=== PATIENT | female | born 1950 | race Caucasian/White ===

== ENCOUNTER → 2021-04-04 | Outpatient (CLI) | payer MEDICARE, OTHER ==
[~2021-04-04] MED LIST: COZAAR50 MG PO; DITROPAN XL5 MG PO; ECOTRIN81 MG PO; HIPREX1 GM PO; LIPITOR TAB 2020 MG PO; LIPITOR40 MG PO; MICROZIDE12.5 MG PO; NITROSTAT0.4 MG SL; PLAQUENIL 200200 MG PO; PROTONIX40 MG PO; SYNTHROID 50 M50 MCG PO; TOPROL XL50 MG PO; VITAMIN B-121000 MC2 SL; VITAMIN C1000 MG PO
== END ==
LOC: HEART 5 11:00
DX: R07.9 Chest pain, unspecified (principal); R53.83 Other fatigue; I35.1 Nonrheumatic aortic (valve) insufficiency; I51.89 Other ill-defined heart diseases
CPT/HCPCS: 93306

== ENCOUNTER → 2021-08-17 | Outpatient (CLI) | payer MEDICARE, OTHER | LOC: US 11:00 | DX: N39.3 Stress incontinence (female) (male) (principal) | CPT/HCPCS: 74018 ==

== ENCOUNTER → 2021-09-03 | Outpatient (CLI) | payer MEDICARE, OTHER | LOC: CT 12:00 | DX: M54.50 Low back pain, unspecified (principal); R31.9 Hematuria, unspecified; K76.0 Fatty (change of) liver, not elsewhere classified; M47.812 Spondylosis without myelopathy or radiculopathy, cervical region; M47.814 Spondylosis without myelopathy or radiculopathy, thoracic region; M47.816 Spondylosis without myelopathy or radiculopathy, lumbar region; Z79.899 Other long term (current) drug therapy | CPT/HCPCS: 36415; 72082; 82565; 84520; Q9967 ==

== ENCOUNTER → 2021-10-19 | Outpatient (CLI) | payer MEDICARE, OTHER | LOC: KOH-I 11:11 | DX: J01.01 Acute recurrent maxillary sinusitis (principal); J34.2 Deviated nasal septum | CPT/HCPCS: 70486 ==